=== PATIENT | female | born 1975 | race Caucasian/White ===

== ENCOUNTER → 2016-03-18 | Outpatient (CLI) | payer OTHER ==
[~2016-03-18] MED LIST: IOHEXOL 240 MG/ML 50ML VIAL. PO ONE; IOHEXOL 300 MG/ML 100ML VIAL. IV ONE; LANS30CA PO; RANI150C PO
--- NOTE | 2016-03-18 14:20 | KCIC ---
PQRS STATEMENT One or more of the following individualized dose reduction techniques were utilized for this study:1.Automated exposure control. 2.Adjustment of the mA and/orkVaccording to patient size. 3.Use of iterative reconstruction technique CT abdomen Indication: Reason For Study Reason: Epigastric pain / Spl. Instructions: 100cc Omni 300, appendectomy, partial hysterectomy / History: Pain a few weeks, worsening and constant pain for the past week Technique: Multiple contiguous axial images were obtained through the abdomen. Images were obtained after intravenous administration of iodinated contrast. Coronal and sagittal reformations were created. Findings: There is S-type scoliotic curvature of the thoracolumbar spine. Lung bases are clear. Heart size is normal. There is a very faint hyperdense lesion in the posterior right lobe of the liver seen on image 14 on the axial sequence. This was faintly visible on the exam from 2013 and therefore likely benign. The leading consideration is a hemangioma. The gallbladder is nondistended. The pancreas shows no signs of inflammation. The spleen and adrenal glands are unremarkable. The kidneys demonstrate no hydronephrosis or mass. There is no ascites or abdominal adenopathy. Impression: - No ascites or inflammatory mass. Electronically signed by: Eliceo Croft (Mar 18, 2016 14:19:13)
== END | disposition home or self-care (01) ==
LOC: KCIC CT 12:29
PROVIDERS: ATTEND Nurse Practitioner Family
DX: M41.85 Other forms of scoliosis, thoracolumbar region (principal); K76.9 Liver disease, unspecified; D18.09 Hemangioma of other sites
CPT/HCPCS: 74160; Q9966; Q9967

== ENCOUNTER → 2016-05-17 | Outpatient (CLI) | payer OTHER ==
[~2016-05-17] MED LIST changes: -IOHEXOL 240 MG/ML 50ML VIAL. PO ONE; -IOHEXOL 300 MG/ML 100ML VIAL. IV ONE
--- NOTE | 2016-05-17 09:08 | KCIC ---
Bilateral digital diagnostic mammograms with CAD: HISTORY Followup parenchymal asymmetry. COMPARISON Comparison is made to previous studies dated studies dated back to 04/16/2013.. FINDINGS Breast density category B. The skin and nipples show no abnormalities. No abnormal lymph nodes are seen in the axilla. The breast parenchyma shows scattered fibroglandular density. There continues to be some asymmetry in the parenchyma in the upper outer quadrant of the left breast which has not changed. There continues to be a small intramammary lymph node at the 2 o'clock C position which is unchanged. There are no new dominant masses, suspicious calcifications or architectural distortions. IMPRESSION Continued presence of some parenchymal asymmetry in the upper-outer quadrant of the left breast without interval change. Ultrasound to follow. This study was interpreted with the benefit of Computerized Aided Detection (CAD). Mammography is not 100% sensitive in detecting breast cancer. Therefore, a self breast exam and a clinical breast exam are very important. A negative mammogram does not negate a clinically suspicious finding and should not result in a delay in biopsying a clinically suspicious abnormality. BI-RADS category 0: Incomplete. Ultrasound to follow. Left breast ultrasound: Comparison is made to previous study dated 05/03/2015 and 11/01/2014. Ultrasound examination was performed in the area of mammographic and clinical concern. There continues to be a small circumscribed nodule at the 2 o'clock position 4 centimeters from the nipple which does not appear to show interval change and likely represents a small fibroadenoma or papilloma. There are no new cystic or solid nodules. No abnormal lymph nodes are seen in the axilla. Impression: Continued presence of a small nodule at the 2 o'clock position with no significant interval change. Recommend routine mammographic followup. BI-RADS category 2: Benign. This patient's information has been entered into a reminder system for the patient to be notified with the results of this examination and a target date for her next mammograms. Electronically signed by: Nan Redman MD (May 17, 2016 09:07:00)
== END | disposition home or self-care (01) ==
LOC: KCIC MAMMO 07:40
PROVIDERS: ATTEND Family Medicine
DX: R92.8 Other abnormal and inconclusive findings on diagnostic imaging of breast (principal); N63 Unspecified lump in breast
CPT/HCPCS: 76641; G0204; 77066

== ENCOUNTER → 2017-05-28 | Outpatient (CLI) | payer OTHER | END | disposition home or self-care (01) | LOC: KCIC MAMMO 14:10 | DX: Z12.31 Encounter for screening mammogram for malignant neoplasm of breast (principal) | CPT/HCPCS: 77063; 77067 ==

== ENCOUNTER → 2018-05-29 | Outpatient (CLI) | payer OTHER ==
--- NOTE | 2018-05-29 17:10 | KCIC ---
Bilateral digital screening mammograms with 3-D tomosynthesis: Reason for examination: Routine screening. Comparison is made to previous studies dated 05/28/2017 and 05/17/2016. Bilateral mammograms in CC and oblique projections were obtained with 2-D imaging and 3-D tomosynthesis imaging on a Siemens Inspiration unit and reviewed on the workstation. Interpretation was made with the benefit of CAD. The skin and nipples show no abnormalities. No abnormal axillary lymph nodes are seen. The breast parenchyma shows scattered fatty and fibroglandular density. (Breast density: Category B.) There appears to be a new nodular parenchymal density present at the central 9:00 B in the right breast approximately 10 cm posterior to the nipple and measuring approximately 8 mm in greatest dimension. Recommend further evaluation with ultrasound. There are no other dominant masses, suspicious calcifications or architectural distortion. Impression: 8 mm nodule centrally at the 9:00 B position of the right breast. Recommend further evaluation with ultrasound. BI-RAD Category 0: Incomplete. Needs additional imaging evaluation. "Our facility is accredited by the [employer] Mammography [employer]." This patient's information has been entered into a reminder system for the patient to be notified with the results of her examination and a target date for the next mammogram. Electronically signed by: Sara Redman MD (05/29/2018 5:05 PM) [id number]
== END | disposition home or self-care (01) ==
LOC: KCIC MAMMO 15:32
PROVIDERS: ATTEND Family Medicine
DX: Z12.31 Encounter for screening mammogram for malignant neoplasm of breast (principal); N63.11 Unspecified lump in the right breast, upper outer quadrant
CPT/HCPCS: 77063; 77067

== ENCOUNTER → 2018-06-08 | Outpatient (CLI) | payer OTHER ==
--- NOTE | 2018-06-08 11:45 | KCIC ---
Right breast ultrasound: Reason for examination: Nodular density on screening mammogram. Comparison is made to mammographic exam dated 05/29/2018. Ultrasound examination was performed in the area of mammographic concern. At the 9:00 position 10 cm from the nipple, there appears to be a 7 mm benign-appearing intramammary lymph node. In the 9:30 position 11 cm from the nipple, there is a 8 mm benign-appearing intramammary lymph node. No suspicious-appearing lesions are seen. No abnormal appearing lymph nodes are seen in the right axilla. IMPRESSION: Small benign-appearing intramammary lymph nodes at the 9:00 and 9:30 positions of the right breast. Recommend routine mammographic follow-up. BI-RADS Category 2: Benign. "Our facility is accredited by the [employer] Mammography [employer]." This patient's information has been entered into a reminder system for the patient to be notified with the results of her examination and a target date for the next mammogram. Electronically signed by: Sara Redman MD (06/08/2018 11:42 AM) [id number]
== END | disposition home or self-care (01) ==
LOC: KCIC US 07:41
PROVIDERS: ATTEND Family Medicine
DX: R92.8 Other abnormal and inconclusive findings on diagnostic imaging of breast (principal)
CPT/HCPCS: 76641

== ENCOUNTER → 2019-08-25 | Outpatient (CLI) | payer OTHER ==
--- NOTE | 2019-08-25 14:12 | KCIC ---
Bilateral digital screening mammograms with 3-D tomosynthesis: Reason for examination: Routine screening. Comparison is made to previous studies dated back to 05/17/2016. Bilateral mammograms in CC and oblique projections were obtained with 2-D imaging and 3-D tomosynthesis imaging on a Siemens Inspiration unit and reviewed on the workstation. Interpretation was made with the benefit of CAD. The skin and nipples show no abnormalities. No abnormal axillary lymph nodes are seen. The breast parenchyma shows scattered fatty and fibroglandular density. (Breast density: Category B.) There are small parenchymal densities seen bilaterally which are stable. There are no new dominant masses, suspicious calcifications or architectural distortion. Impression: No evidence of malignancy. Recommend routine screening. BI-RAD Category 2: Benign. "Our facility is accredited by the [employer] Mammography [employer]." This patient's information has been entered into a reminder system for the patient to be notified with the results of her examination and a target date for the next mammogram. Electronically signed by: Sara Redman MD (08/25/2019 2:09 PM) [email or web address]
== END ==
LOC: KCIC MAMMO 11:04
PROVIDERS: ATTEND Obstetrics & Gynecology
DX: Z12.31 Encounter for screening mammogram for malignant neoplasm of breast (principal)
CPT/HCPCS: 77063; 77067

== ENCOUNTER → 2020-08-29 | Outpatient (CLI) | payer OTHER ==
--- NOTE | 2020-08-29 16:23 | KCIC ---
Bilateral digital screening mammograms with 3-D tomosynthesis: Reason for examination: Routine screening. Comparison is made to previous studies dated back to 04/21/2014. Bilateral mammograms in CC and oblique projections were obtained with 2-D imaging and 3-D tomosynthes is imaging on a Siemens Inspiration unit and reviewed on the workstation. Interpretation was made wit h the benefit of CAD. The skin and nipples show no abnormalities. No abnormal axillary lymph nodes are seen. The breast par enchyma shows scattered fatty and fibroglandular density. (Breast density: Category B.) There are no dominant masses, suspicious calcifications or architectural distortion. Impression: No evidence of malignancy. Recommend routine screening. BI-RAD Category 2: Benign. "Our facility is accredited by the [employer] Mammography [employer]." This patient's information has been entered into a reminder system for the patient to be notified wit h the results of her examination and a target date for the next mammogram. Electronically signed by: Sara Redman MD (08/29/2020 4:21 PM) [email or web address]
== END ==
LOC: KCIC MAMMO 14:31
PROVIDERS: ATTEND Obstetrics & Gynecology
DX: Z12.31 Encounter for screening mammogram for malignant neoplasm of breast (principal)
CPT/HCPCS: 77063; 77067